=== PATIENT | male | born 1940 | race Caucasian/White ===

== ENCOUNTER 2024-01-26 17:08 | Emergency (ER) | payer MEDICARE, SELFPAY ==
--- NOTE | ~2024-01-26 | XR_ITS ---
EXAMINATION: XR CHEST CLINICAL INFORMATION: Chest pain COMPARISON: None available. TECHNIQUE: 2 views of the chest were obtained. FINDINGS: Heart size within normal limits. A TAVR is in place. There is no evidence of CHF. No infiltrates, effusions or lung masses are seen. A spinal stimulator is present with 2 leads just beneath the helena. There is mild anterior wedging of a midthoracic vertebral body. Some mild degenerative changes are seen in the spine with scoliosis convex to right. XR/XR chest 2V IMPRESSION: No acute intrathoracic disease. TAVR in place.
[2024-01-26 17:16] VITALS: BP 104/51; BP 110/82; PULSE 76; PULSE 86; RESP 14; TEMP 36.9; O2SAT 97; O2SAT 98; BMI 25.6
[2024-01-26 17:20] VITALS: BP 104/51; PULSE 76; RESP 14; TEMP 36.9; O2SAT 98
--- NOTE | 2024-01-26 17:23 | ECG_ITS ---
Test Reason : CHEST PAIN Blood Pressure : / mmHG Vent. Rate : 079 BPM Atrial Rate : 079 BPM P-R Int : 204 ms QRS Dur : 152 ms QT Int : 460 ms P-R-T Axes : 031 -16 090 degrees QTc Int : 527 ms Normal sinus rhythm Left bundle branch block Abnormal ECG No previous ECGs available Referred By: Fatmata Luna Electronically Signed By:PAULIE CHRISTIAN
--- NOTE | 2024-01-26 17:23 | ED.CHESTPAIN ---
HPI - Chest Pain General Chief Complaint: Chest Pain Stated Complaint: ETOH SINCE 8 AM. CHEST PAIN Time Seen by Provider: 01/26/24 17:22 Source: patient and EMS Mode of arrival: EMS Limitations: no limitations History of Present Illness ED Provider: Fatmata Luna PA-C HPI narrative: Patient is an 83 year old assigned male at with a history of alcohol abuse and a TAVR presenting to the emergency department today with central chest pain. Patient states that he has had central chest pain for days that does not radiate. Patient states that he has been drinking a lot of alcohol throughout the day. Patient states that he has been evaluated for this chest pain recently at [facility] and was discharged. Patient denies any dizziness, lightheadedness, abdominal pain, nausea, vomiting, fever, chills, blurry vision, double vision, loss of vision, difficulty breathing, shortness of breath, back pain, night sweats, pain with urination, increased urinary frequency, increased urinary urgency, blood in his urine or stool, syncope or a near syncopal episode, recent trauma or falls, bowel incontinence, bladder incontinence, or any other complaints at this time. MD complaint: chest pain Exacerbating factors: nothing Treatment prior to arrival: none Related Data Allergies Allergy/AdvReac Type Severity Reaction Status Date / Time No Known Allergies Allergy Verified 01/26/24 17:19 Review of Systems Constitutional: Constitutional: Reports no additional constitutional complaints, Denies chills, Denies fever(s) and Denies night sweats Eyes: Eyes: Reports no additional eye complaints, Denies blurry vision, Denies change in vision, Denies diplopia, Denies eye discharge, Denies loss of vision and Denies eye pain ENT: Denies dizziness Cardiovascular: Cardiovascular: Reports no additional cardiovascular complaints, Reports chest pain, Denies lightheadedness, Denies Loss of Consciousness and Denies dyspnea Respiratory: Respiratory: Reports no additional respiratory complaints and Denies dyspnea Gastrointestinal: Gastrointestinal: Reports no additional gastrointestinal complaints, Denies abdominal pain, Denies melena, Denies hematochezia, Denies change in bowel habits and Denies change in stool character Genitourinary: Genitourinary: Reports no additional male genitourinary complaints, Denies hematuria, Denies oliguria, Denies difficulty urinating, Denies dysuria, Denies urinary frequency, Denies urinary hesitancy, Denies urinary incontinence and Denies urinary urgency Musculoskeletal: Musculoskeletal: Reports no additional musculoskeletal complaints, Denies numbness and Denies tingling Neurologic: Denies dizziness, Denies loss of vision, Denies numbness and Denies tingling Psychiatric: Psychiatric: Reports no additional psychiatric complaints Endocrine: Endocrine: Reports no additional endocrine complaints Hematologic/Lymphatic: Hematologic/Lymphatic: Reports no additional hematologic/lymphatic complaints Allergic/Immunologic: Allergic/Immunologic: Reports no additional allergic/immunologic complaints [facility] Past Medical History Attestation statement: The following information was validated with the patient. Source: old records reviewed and nursing notes reviewed Social History Social History Alcohol intake: current Alcohol intake frequency: 3 or more drinks per day Alcohol type: beer and hard liquor Smoked in Last 30 Days: No Use of substances other than those prescribed or required for medical reasons: No Advance Directives: No Advance Directives Information Provided: No Do you have a plan to hurt others: No Plan Physical Exam Vital Signs: Vital Signs: Last Vital Signs Temp 98.5 F 01/26/24 22:22 Pulse 92 01/26/24 22:22 Resp 14 01/26/24 22:22 BP 148/55 H 01/26/24 22:22 Pulse Ox 98 01/26/24 22:22 O2 Del Method Room Air 01/26/24 22:22 BMI result Body Mass Index 25.6 Const: General: cooperative, no acute distress, alert and awake Nutritional Appearance: well nourished Orientation/consciousness: patient oriented x3 Limitations: no limitations HEENT: Head: Yes normal to inspection and Yes atraumatic Ears: hearing grossly normal bilaterally and external ears normal General nose exam: Normal external nose present, no nasal discharge noted and no epistaxis Face and sinus: Yes normal facial exam, No abrasion and No laceration Mouth: Normal oral and palatal mucosa present, no drooling and no muffled voice Eyes: General: appearance normal, both eyes and all related structures Periorbital: periorbital findings normal Eyelids: Yes eyelids normal Conjunctivae: conjunctivae normal Pupils: Equal, round and reactive pupils present EOM: EOMs intact bilaterally Neck: Neck: Yes normal visual inspection, Yes full ROM and Yes no lymphadenopathy Chest: Chest palpation & inspection: normal inspection of the chest Resp: Effort & Inspection: normal respiratory effort and able to speak in complete sentences GI: Inspection: Yes normal to inspection Neuro: General: patient oriented x3 and moves all extremities Cranial nerves: Yes Equal, round and reactive pupils present Cognition (Neuro): normal cognition Extrem: General: Yes normal to inspection, Yes full ROM and Yes capillary refill normal Psych: Appearance: grossly normal Mental Status: mental status grossly normal Affect: normal affect Attitude: cooperative Thought process: Normal thought process present Thought content: Normal thought content present Insight: Good insight present (Psych) Medications Administered Discontinued Medications Generic Name Dose Route Start Last Admin Trade Name Sanjay PRN Reason Stop Dose Admin Pantoprazole Sodium 40 mg 01/26/24 17:23 01/26/24 18:11 Pantoprazole Sodium 40 Mg/10 Ml Vial IVPUSH 01/26/24 17:24 40 mg ONCE ONE Administration Medical Decision Making Medical Decision Making [facility] Narrative: Patient is an 83 year old assigned male at with a history of TAVR and alcohol abuse presenting to the emergency department today with central chest pain. Patient's physical exam was unremarkable. Patient's blood work showed a hgb of 9.9, ethyl alcohol of 205, initial trop of 21.8, a repeat trop of 20.2, and the rest of his results were unremarkable. Patient's EKG was unremarkable. Patient's chest x-ray showed no acute process. I explained my physical exam findings as well as all test results to the patient. I answered all questions asked by the patient. I stressed the importance of the patient taking his medication as directed (either prescribed or as the over the counter packaging recommends). 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 I stressed the importance of the patient returning to the emergency department immediately if his symptoms were to worsen or if he were to develop any dizziness, shortness of breath, difficulty breathing, chest pain, blurry vision, loss of vision, nausea, vomiting, abdominal pain, fever, chills, back pain, or any other complaints. Patient verbalized agreement and understanding with this treatment plan and discharge. Patient was steady on his feet and clinically sober upon discharge. Differential Diagnosis Differential Diagnoses: The differential diagnosis associated with the presentation includes NSTEMI STEMI Chest pain GERD Alcohol abuse Admission/Observation Consideration of admission/observation: Escalation of care including admission/observation considered Patient would have been admitted to the hospital had his work up had any findings where hospital admission was appropriate and his clinical presentation warranted hospital admission. Lab Data [facility] Lab Attestation statement: I reviewed the patient's lab results. My interpretation of these results are in the [facility] Rationale portion of this note. 01/26/24 17:34 01/26/24 17:34 Labs: Lab Results 01/26/24 01/26/24 01/26/24 Range/Units 17:34 18:40 19:06 WBC 3.6 L (4.8-10.8) X10*3/uL RBC 2.85 L (4.60-5.80) X10*6/uL Hgb 9.9 L (14.0-18.0) g/dl Hct 27.7 L (42.0-52.0) % MCV 97.2 (80.0-98.0) fL MCH 34.7 H (27.0-33.0) pg MCHC 35.7 (31.0-36.0) g/dl RDW 13.9 (11.0-16.0) % Plt Count 96 L (160-400) X10*3/uL MPV 10.9 (9.4-12.4) fL Immature Gran % (Auto) 0.6 H (0.0-0.4) % Neut % (Auto) 44.9 L (45-73) % Lymph % (Auto) 30.6 (20-40) % [place] % (Auto) 22.5 H (2-11) % Eos % (Auto) 1.1 (0-4) % Baso % (Auto) 0.3 (0-2) % Lymph # (Auto) 1.1 L (1.2-4.9) X10*3/uL [place] # (Auto) 0.8 (0.1-1.2) X10*3/uL Eos # (Auto) 0.0 (0.0-0.4) X10*3/uL Baso # (Auto) 0.0 (0.0-0.2) X10*3/uL Abs Immat Gran (auto) 0.02 (0.00-0.03) X10*3/uL Absolute Neuts (auto) 1.6 L (2.0-8.3) x10*3/uL Absolute Nucleated RBC 0.000 (0.0-0.012) X10*3/uL Nucleated RBC % (auto) 0.0 (0.0-0.2) /100WBC Smear Tech's Comments VERIFIED PT 12.5 (11.1-13.3) SEC INR 1.0 (0.9-1.1) APTT 31.4 (26.0-36.8) SEC Sodium 138 (135-145) mmol/L Potassium 4.2 (3.3-5.1) mmol/L Chloride 104 (96-108) mmol/L Carbon Dioxide 20 L (22-29) mmol/L Anion Gap 18 (12-20) BUN 15 (9-16) mg/dL Creatinine 0.84 (0.5-1.4) mg/dL Estim Creat Clear Calc 61.2 Estimated GFR > 60 Random Glucose 92 (60-115) mg/dL Calcium 9.0 (8.4-10.2) mg/dL Magnesium 1.8 (1.6-2.6) mg/dL Total Bilirubin 0.8 (0.0-1.0) mg/dL AST 40 H (5-37) U/L ALT 24 (0-40) U/L Alkaline Phosphatase 55 (39-117) U/L Troponin I High Sens 21.8 20.2 (<3.5-35.0) ng/L Total Protein 6.7 (6.5-8.0) g/dL Albumin 4.0 (3.5-5.0) g/dL Urine Color Yellow Urine Appearance Clear Urine pH 5.5 (5.0-9.0) Ur Specific [place] 1.010 (1.005-1.025) Urine Protein Negative (Neg-Trace) mg/dL Urine Glucose (UA) Negative (Negative) mg/dL Urine Ketones Negative (Negative) mg/dL Urine Blood Negative (Negative) Urine Nitrite Negative (Negative) Ur Leukocyte Esterase Negative (Negative) Ethyl Alcohol 205 mg/dL Influenza Type A (PCR) NEGATIVE (Negative) Influenza Type B (PCR) NEGATIVE (Negative) RSV RNA Qual (PCR) NEGATIVE (Negative) SARS-CoV-2 RNA (RT-PCR) NEGATIVE (Negative) Independent Interpretation I performed an independent interpretation of an: EKG and Plain X-Ray Interpretation: My interpretation is in agreement with the radiologist's impression of this imaging study. EXAMINATION: XR CHEST CLINICAL INFORMATION: Chest pain COMPARISON: None available. TECHNIQUE: 2 views of the chest were obtained. FINDINGS: Heart size within normal limits. A TAVR is in place. There is no evidence of CHF. No infiltrates, effusions or lung masses are seen. A spinal stimulator is present with 2 leads just beneath the helena. There is mild anterior wedging of a midthoracic vertebral body. Some mild degenerative changes are seen in the spine with scoliosis convex to right. XR/XR chest 2V IMPRESSION: No acute intrathoracic disease. TAVR in place Dictated By: Josh Bob MD Signed By: Electronically signed by Josh Bob MD 01/26/24 1936 Vent. Rate: 079 BPM Atrial Rate: 079 BPM P-R Int: 204 ms QRS Dur: 152 ms QT Int: 460 ms P-R-T Axes: 031 -16 090 degrees QTc Int: 527 ms Normal sinus rhythm Left bundle branch block Abnormal ECG No previous ECGs available DD/ 1722 Radiology Impression Discussion of test interpretation with radiology: I have reviewed the radiologist's reading. Independent Historian Clinical information obtained from an independent historian. 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 Your work up today did not show any cardiac concerns. Return to the emergency department immediately if your symptoms worsen or if you develop any dizziness, shortness of breath, difficulty breathing, chest pain, blurry vision, loss of vision, nausea, vomiting, abdominal pain, fever, chills, back pain, or any other complaints. Referrals: [facility] [place] [facility] [place]] [facility] [place] [facility] [Provider Group] (Call to establish and follow up with a primary care provider. If you already have a primary care provider, please follow up with them.) [facility] [place] [facility] [Provider Group] Interventions: ED Discharge Assessment Last Done: 01/26/24 22:22 Discharge Date/Time: 01/26/24 22:22 Print Language: Vietnamese
[2024-01-26 17:40] LABS: Basophils Percent Auto 0.3 % (0-2); Hemoglobin 9.9 g/dl (14.0-18.0); Imm Gran Abs Auto 0.02 X10*3/uL (0.00-0.03); Imm Gran Pct Auto 0.6 % (0.0-0.4); MANUAL DIFF FLAG SCAN; PLT CLUMP 1; SCAN SMEAR FLAG 1
[2024-01-26 17:42] LABS: Eosinophils Percent Auto 1.1 % (0-4); Hematocrit 27.7 % (42.0-52.0); Lymphocytes Absolute Auto 1.1 X10*3/uL (1.2-4.9); Lymphocytes Percent Auto 30.6 % (20-40); Mean Corpuscular HGB Conc 35.7 g/dl (31.0-36.0); Mean Corpuscular Hemoglobin 34.7 pg (27.0-33.0); Mean Corpuscular Volume 97.2 fL (80.0-98.0); Mean Platelet Volume 10.9 fL (9.4-12.4); Monocytes Absolute Auto 0.8 X10*3/uL (0.1-1.2); Monocytes Percent Auto 22.5 % (2-11); Neutrophils Absolute Auto 1.6 x10*3/uL (2.0-8.3); Neutrophils Percent Auto 44.9 % (45-73); Red Blood Count 2.85 X10*6/uL (4.60-5.80); Red Cell Distribution Width 13.9 % (11.0-16.0)
[2024-01-26 17:44] LABS: Platelet Count 96 X10*3/uL (160-400); White Blood Count 3.6 X10*3/uL (4.8-10.8)
[2024-01-26 17:46] LABS: Prothrombin Time 12.5 SEC (11.1-13.3)
[2024-01-26 17:49] LABS: Partial Thromboplastin Time 31.4 SEC (26.0-36.8)
[2024-01-26 17:59] LABS: Alanine Aminotransferase 24 U/L (0-40); Alkaline Phosphatase 55 U/L (39-117); Anion Gap 18 (12-20); Aspartate Amino Transferase 40 U/L (5-37); Bilirubin Total 0.8 mg/dL (0.0-1.0); Blood Urea Nitrogen 15 mg/dL (9-16); Carbon Dioxide 20 mmol/L (22-29); Chloride 104 mmol/L (96-108); Creatinine Clr Calc Pharmacy 61.2; Estimated Glomerular Filt Rate > 60; Ethanol 205 mg/dL; Glucose Random 92 mg/dL (60-115); Magnesium 1.8 mg/dL (1.6-2.6); Potassium 4.2 mmol/L (3.3-5.1); Sodium 138 mmol/L (135-145); Total Protein 6.7 g/dL (6.5-8.0)
[2024-01-26 18:06] LABS: Troponin-I High Sensitivity 21.8 ng/L (<3.5-35.0)
[2024-01-26] MEDS: Pantoprazole Sodium 40 MG/10 ML VIAL IVPUSH (18:11)
[2024-01-26 18:43] LABS: SLIDE REVIEW VERIFIED
[2024-01-26 19:07] LABS: Troponin-I High Sensitivity 20.2 ng/L (<3.5-35.0)
[2024-01-26 19:13] LABS: Appearance Urine Clear; Color Urine Yellow; Glucose Urine UA Negative (Negative); Leukocyte Esterase Urine Negative (Negative); Nitrite Urine Negative (Negative); PH 5.5 (5.0-9.0); Urine Blood Negative (Negative); Urine Ketones Negative (Negative); Urine Protein Negative (Neg-Trace)
[2024-01-26 19:25] LABS: Influenza A PCR NEGATIVE (Negative); Influenza B PCR NEGATIVE (Negative); Resp Syncy Virus RNA Qual PCR NEGATIVE (Negative); SARS COV2 PCR INHOUSE NEGATIVE (Negative)
[2024-01-26 20:42] VITALS: BP 148/55; PULSE 92; RESP 14; TEMP 36.9; O2SAT 98
--- NOTE | 2024-01-26 20:50 | PC.NURSE ---
Addendum entered by Dana Hammer 01/26/24 21:23: pt refusing to stay overnight until can pick pt up. pt is ambulatory with steady gait and states he can walk home. PA aware and ok with pt d/c. Original Note: pt is axox3 ambulatory with steady gait. pt was up for discharge however states does not have a ride home. given call with no answer, pt states she does not drive at night but can pick him up in AM. pt placed in phys obs at this time per PA. vss. resting comfortably, call ortiz within reach.
[2024-01-26 22:22] VITALS: BP 148/55; PULSE 92; RESP 14; TEMP 36.9; O2SAT 98
== END 2024-01-26 22:22 | disposition home or self-care (01) ==
PROVIDERS: Physician Assistant Medical; Emergency Provider Emergency Medicine Emergency Medical Services
DX: R07.9 Chest pain, unspecified (principal); F10.10 Alcohol abuse, uncomplicated; Y90.7 Blood alcohol level of 200-239 mg/100 ml; I44.7 Left bundle-branch block, unspecified; Z03.818 Encounter for observation for suspected exposure to other biological agents ruled out; Z95.2 Presence of prosthetic heart valve
CPT/HCPCS: 0241U; 36415; 71046; 80053; 80307; 81003; 83735; 84484; 85025; 85610; 85730; 93005; 96374; 99284; 99285; J2470

== ENCOUNTER → 2024-01-26 17:23 | Outpatient (BNV) | payer MEDICARE, SELFPAY | PROVIDERS: Emergency Provider Emergency Medicine Emergency Medical Services; Visit Provider Internal Medicine | DX: R94.31 Abnormal electrocardiogram [ECG] [EKG] (principal) | CPT/HCPCS: 93010 ==